=== PATIENT | female | born 1995 | race Caucasian/White ===

== ENCOUNTER → 2019-08-28 | Day surgery (SDC) | payer OTHER ==
--- NOTE | ~2019-08-28 | O ---
[facility] [place] [address] OPERATIVE REPORT Name: PATTI CASILLAS Room #: REG [facility]#: [id number] Admission: 08/28/19 Attend Phys: Adelaida Frances, Discharge: Date of : 89 Report #: [id number] THIS REPORT FOR: cc: Ashish Mckinnon MD, Bernard O. MD Deardorff,Adelaida Mendenhall MD ~ THIS REPORT FOR: //name// CC: Ashish Frances DATE OF SERVICE: 08/28/2019 PREOPERATIVE DIAGNOSIS: Possible left hand abscess with foreign body. POSTOPERATIVE DIAGNOSIS: Left hand abscess with possible foreign body. PROCEDURE PERFORMED: Left hand abscess debridement of skin and subcutaneous tissue. SURGEON: Adelaida Frances MD ANESTHESIA: General mask anesthesia. ESTIMATED BLOOD LOSS: 1 mL. TOURNIQUET TIME: 13 minutes. COMPLICATIONS: None. CONDITION: Stable. DISPOSITION: Recovery room. INDICATIONS: The patient is a 23-year-old female with the above-mentioned diagnosis. She noted increase in the proximal erythema since I saw her yesterday and I confirmed this. She still had exquisite tenderness between the index and long web spaces. The risks, benefits, alternatives and complications were discussed including but not limited to inability to completely resolve the infection, damage to vessels or nerves, wound healing problems. Informed consent was obtained. The correct extremity was identified and labeled by myself after verbal confirmation of the patient as well as visual confirmation and signed informed consent. DESCRIPTION OF PROCEDURE: The patient was brought back to the operating room and placed on the operating table in a supine position. She received [address] [id number] OPERATIVE REPORT Name: PATTI CASILLAS Room #: [place] [facility] [place]#: [id number] Admission: 08/28/19 Attend Phys: Adelaida Frances, Discharge: Date of : 89 Report #: [id number] vancomycin after cultures were taken and the tourniquet was deflated. The left upper extremity was sterilely prepped and draped in the usual fashion. Final timeout was taken to verify correct patient, operative procedure, and operative site, all concurred. The arm was elevated, exsanguinated proximal to the hand and the tourniquet was inflated. Next, approximately 1 cm incision was made in the index and long finger web space over the area of maximal swelling and immediate purulent fluid was expressed. Tissue and swab was sent to microbiology. A small hair was noted to be within the fluid. A synovial rongeur was used to debride any other inflammatory tissue. The wound was thoroughly irrigated with a liter of antibiotic saline. The wound was closed with 5-0 nylon suture. The wound was dressed with Xeroform and sterile gauze. She was placed in a bulky dressing. All fingers were pink with brisk capillary refill at the conclusion of case after deflation of tourniquet. All sponge and needle counts were correct. The patient was transferred to postoperative recovery room in stable condition. By: [id number] Adelaida Frances MD /nt
== END | disposition home or self-care (01) ==
LOC: OR 07:58
DX: L02.512 Cutaneous abscess of left hand (principal); E03.9 Hypothyroidism, unspecified; J45.909 Unspecified asthma, uncomplicated; Z98.890 Other specified postprocedural states; Z79.899 Other long term (current) drug therapy
CPT/HCPCS: 50010; 50101; 50386; 57006; 57091; 57178; 62110; 62900; 70005